=== PATIENT | male | born 1940 | race Caucasian/White ===

== ENCOUNTER 2020-07-12 11:32 | Outpatient (CLI) | payer OTHER, SELFPAY ==
--- NOTE | ~2020-07-12 | XR_ITS ---
EXAMINATION: XR lumbar spine 2-3V EXAM DATE: 07/12/2020 11:52 INDICATION: Low back pain for years. TECHNIQUE: Lumber spine frontal, lateral, lateral L5-S1 projections for interpretation. There is no prior study for comparison. 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 There is 2-3 mm anterolisthesis L3 on L4 and L4 on L5. Mild to moderate diffuse coreen mbar disc disease, with mild progression compared to 2017. Moderate facet arthropathy at L3-4 and L4- 5, less at the upper lumbar levels. Vertebral body heights relatively well-maintained. There is mild to moderate aortic arterial sclerosis. No endplate erosive change. Several calcific densities projecting over colonic stool and right kidney on the frontal appear to be too far anterior on the lateral projection to be kidney stones. 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 Reviewed, dictated and finalized at location A.
== END 2020-07-12 11:33 | disposition home or self-care (01) ==
LOC: ANHIMG 11:38
PROVIDERS: PCP Family Medicine; Visit Provider Family Medicine
DX: G89.29 Other chronic pain (principal); M54.9 Dorsalgia, unspecified; M47.816 Spondylosis without myelopathy or radiculopathy, lumbar region
CPT/HCPCS: 72100

== ENCOUNTER 2021-02-04 13:14 | Outpatient (CLI) | payer OTHER, SELFPAY ==
--- NOTE | 2021-02-04 13:57 | ECHO_ITS ---
Patient Info Name: Shahriar Gerber Age: 80 years : 1940 Gender: Male Ht: 67 in Wt: 170 lbs BSA: 1.92 m2 HR: 67 bpm BP: 126 / 73 mmHg Technical Quality: Fair Exam Date: 02/04/2021 2:06 PM Exam Location: [facility] Patient Status: Outpatient Admit Date: 02/04/2021 Staff Ordering Physician: Stewart Lowe MD Radiotelephone Operator: Sallie Zhang RDCS Attending Provider: Stewart Lowe MD Exam Type: CA echo doppler color flow Study Info Indications R01.1 - Cardiac murmur, unspecified Complete two-dimensional, color flow and Doppler transthoracic echocardiogram is performed. Summary 1. Complete two-dimensional, color flow and Doppler transthoracic echocardiogram is performed. 2. Left ventricular chamber dimension is normal. 3. Left ventricular systolic function is normal, estimated at 60-65%. 4. There is mildly increased left ventricular wall thickness. 5. The left ventricular diastolic function is grade I diastolic dysfunction. 6. E/e' 13 is mildly elevated. 7. There is severe aortic valve sclerosis. 8. There is mild aortic valve stenosis with a peak velocity of 213 cm/s, mean gradient of 10 mmHg, and aortic valve area of 1.7 cm2. 9. There is trace aortic valve regurgitation. 10. The mitral valve has mildly calcified leaflets and moderately calcified annulus. 11. No pulmonary hypertension, estimated pulmonary arterial systolic pressure is 20 mmHg. Left Ventricle E/e' 13 is mildly elevated. Left ventricular chamber dimension is normal. Left ventricular systolic function is normal, estimated at 60-65%. There is mildly increased left ventricular wall thickness. The left ventricular diastolic function is grade I diastolic dysfunction. Right Ventricle Right ventricular chamber dimension is normal. Right ventricular systolic function is normal. Left Atria Left atrial chamber dimension is normal. Right Atria Right atrial chamber dimension is normal. Aortic Valve The aortic valve is trileaflet. There is severe aortic valve sclerosis. There is mild aortic valve stenosis with a peak velocity of 213 cm/s, mean gradient of 10 mmHg, and aortic valve area of 1.7 cm2. There is trace aortic valve regurgitation. Pulmonic Valve There is no pulmonic regurgitation. Mitral Valve The mitral valve has mildly calcified leaflets and moderately calcified annulus. There is no mitral valve stenosis. There is no mitral valve regurgitation. Tricuspid Valve There is no tricuspid valve regurgitation. No pulmonary hypertension, estimated pulmonary arterial systolic pressure is 20 mmHg. Pericardium/Pleural There is no pericardial effusion. Inferior Vena Cava Normal inferior vena cava with >50% collapse upon inspiration consistent with normal right atrial pressure, 5 mmHg. Aorta The aortic root size at the sinus of Valsalva is normal. Left Ventricular Outflow Tract Name Value Normal LVOT 2D LVOT Diameter 1.9 cm LVOT Doppler LVOT Peak Gradient 7 mmHg LVOT Mean Gradient 5 mmHg LVOT VTI 27 cm
== END 2021-02-04 13:15 | disposition home or self-care (01) ==
LOC: ANHCARD 13:19
PROVIDERS: PCP Family Medicine; Visit Provider Family Medicine
DX: R01.1 Cardiac murmur, unspecified (principal); R93.1 Abnormal findings on diagnostic imaging of heart and coronary circulation
CPT/HCPCS: 93306

== ENCOUNTER 2021-05-06 10:28 | Inpatient (IN) | payer OTHER, SELFPAY ==
[2021-05-06] VITALS (16 sets, daily range): BP systolic 123–160; BP diastolic 64–94; PULSE 78–106; RESP 18–28; TEMP 36.8–38.5; O2SAT 89–96; BMI 26.2
--- NOTE | ~2021-05-06 | CT_ITS ---
EXAMINATION: CT brain wo con, CT cervical spine wo con EXAM DATE: 05/06/2021 12:14 (accession [id number]), 05/06/2021 12:15 (accession [id number]) INDICATION: Fall, head injury. Syncope. TECHNIQUE: Spiral CT of the head was performed without contrast. Axial, coronal and sagittal images were reviewed. Spiral CT of the cervical spine was performed without contrast. Axial images were rev iewed. Coronal and sagittal reformatted images were also reviewed. The dose-length product (DLP) fo r this examination was 681.00 (accession [id number]), 498.74 (accession [id number]) mGy-cm. The exposure was tailored according to patient size, and iterative reconstruction (ASIR) was used as additional dose reduction technique. There is no prior study for comparison. FINDINGS: HEAD CT: There is no acute intraparenchymal hemorrhage. No evidence of intraparenchymal brain mass l esion. No evidence of acute infarction. There is mild periventricular and subcortical hypodensity, n onspecific but probably related to small vessel ischemic disease. There is mild prominence of the s ulci and ventricles related to cerebral atrophy. There is no mass effect or midline shift. There i s no obstructive hydrocephalus suspected. There are no extra-axial collections. There are no acute calvarial fractures. Patient has had bilateral ocular lens surgery. Soft tissue is unremarkable. M ild left maxillary sinus and mild bilateral ethmoid mucoperiosteal thickening. CERVICAL CT: Bilateral upper lobe airspace disease, could be acute viral pneumonia. There is no evide nce of acute cervical fracture. The odontoid process is intact. Pre-dens space is normal. Preverte bral soft tissue is normal. There are no soft tissue abnormalities identified. There is no disc spa ce widening or traumatic vertebral body subluxation suspected. There is advanced mid and lower cervi avani disc disease, and cervical arthropathy. A detailed level by level evaluation of spondylosis can be added as addendum if requested. IMPRESSION: 1. No acute intracranial findings or cervical fracture. 2. Bilateral upper lobe airspace disease suspicious for COVID 19, or other acute process. Reviewed, dictated and finalized at location A. NISTRATIVE OFFICER IMPRESSION: 1. No acute intracranial findings or cervical fracture. 2. Bilateral upper lobe airspace disease suspicious for COVID 19, or other acu te process.
--- NOTE | ~2021-05-06 | US_ITS ---
EXAMINATION: US right upper quadrant DATE: 05/08/2021 15:29 INDICATION: Abnormal liver function tests. TECHNIQUE: Multiple grayscale and Doppler ultrasound images of the abdomen were obtained. COMPARISON: Chest CT 05/06/2021 FINDINGS: The visualized portions of the head and body of the pancreas are normal. The liver is fanny l without focal lesion. No liver surface nodularity. There is normal flow in main portal vein. The ga llbladder is normal in size. No gallstones or gallbladder wall thickening. There was no sonographic M urphy sign. The common duct is normal and measures 3 mm. IMPRESSION: 1. Normal right upper quadrant ultrasound. Reviewed, dictated and finalized at location A. CONDITIONING MECHANIC INDUSTRIAL
--- NOTE | ~2021-05-06 | XR_ITS ---
EXAMINATION: XR lumbar spine min 4V EXAM DATE: 05/06/2021 12:31 INDICATION: Fall, injury, low back pain. Syncope. TECHNIQUE: Lumber spine frontal, lateral, bilateral oblique projections. Coned down frontal and lat eral L5-S1 lumbar projections for interpretation. Comparison is made to prior examination from 017. FINDINGS: There are no acute fractures identified. Shape to the right L2 transverse process is unchan ged compared to 2017.. Mild to moderate disc disease L3-4 and L4-5, mild at the other lumbar levels. There is 3 mm anterolisthesis L5 on S1. Sacrum, sacroiliac joints, sacral arcuate lines are intact. Mild to moderate abdominal aortic arteriosclerosis. There is moderate mid and lower lumbar disc disea se. Moderate bilateral hip osteoarthritis. IMPRESSION: 1. No acute lumbar findings. 2. Mild to moderate spondylosis. Reviewed, dictated and finalized at location A. MACY SERVICE ASSOCIATE
--- NOTE | ~2021-05-06 | XR_ITS ---
XR chest 1V portable 05/10/2021 14:19 Indication: Covid pneumonia Procedure: AP portable chest Comparison: Comparison to multiple prior studies sequentially, with oldest reviewed study dated 06/25. Findings: Patchy bilateral airspace disease, compatible with pneumonia. No pleural effusion. No acute osseous abnormality. Heart size normal. Impression: 1: Patchy bilateral airspace disease, compatible with pneumonia. Reviewed, dictated and finalized at location B. ENFORCEMENT OFFICER Impression: 1: Patchy bilateral airspace disease, compatible with pneumonia.
--- NOTE | ~2021-05-06 | CT_ITS ---
EXAMINATION: CTA chest PE protocol EXAM DATE: 05/06/2021 12:37 INDICATION: Hypoxia. TECHNIQUE: Spiral CTA of the chest (pulmonary arteries) was performed with 100 cc Omnipaque 350 intr avenous contrast injection. Images were acquired during the pulmonary arterial phase. Coronal maxi mum intensity projection 3D-reconstructions were created by the technologist on dedicated workstation . Axial, coronal and sagittal reformatted images were reviewed. The dose-length product (DLP) for t his examination was 414.98 mGy-cm. The exposure was tailored according to patient size (auto mA exp osure control), and iterative reconstruction (ASIR) was used as additional dose reduction technique. There is no prior study for comparison. FINDINGS: Pulmonary arteries are well opacified and without intraluminal filling defects. No thorac ic aortic dissection. Moderate amount of bilateral groundglass airspace disease, most likely COVID p neumonia given appearance and also community prevalence. There are no pleural or pericardial effusio ns. Tracheobronchial tree is patent. There is no mediastinal, hilar or axillary lymphadenopathy. There is no pneumothorax. Heart normal in size. There is moderate coronary arterial calcificati on, arterial sclerosis. There is small sliding gastroesophageal hiatal hernia. No acute fractures id entified. IMPRESSION: 1. Moderate amount of bilateral airspace disease most consistent with COVID pneumonia. 2. No pulmonary emboli. Reviewed, dictated and finalized at location A. NT REP IMPRESSION: 1. Moderate amount of bilateral airspace disease most consistent with COVID pn eumonia. 2. No pulmonary emboli.
--- NOTE | ~2021-05-06 | XR_ITS ---
XR chest 1V portable 05/06/2021 11:23 Indication: Dizziness Procedure: AP portable chest Comparison: 06/26/2007 Findings: Patchy bilateral airspace disease, compatible with pneumonia. Edema less favored. No signif icant effusion or pneumothorax. No acute osseous abnormality. Impression: 1: Patchy bilateral airspace disease, most likely pneumonia. Edema less favored. Reviewed, dictated and finalized at location B. L BOX MAKER Impression: 1: Patchy bilateral airspace disease, most likely pneumonia. Edema less favored .
--- NOTE | 2021-05-06 11:14 | ECG_ITS ---
Measurements Intervals [place] Rate: 102 P: 68 NV: 156 QRS: 12 QRSD: 96 T: 37 QT: 339 QTc: 443 Interpretive Statements SINUS TACHYCARDIA INCOMPLETE RIGHT BUNDLE BRANCH BLOCK BORDERLINE ST ABNORMALITY- ANTEROLATERAL LEADS BASELINE ARTIFACT- I, II, III, AVR, AVL, AVF, V1-V3 BORDERLINE ECG Electronically Signed On 05-06-2021 11:26:52 WAREHOUSE LABORER by Roger Rawls D.O.
--- NOTE | 2021-05-06 11:26 | PC.NURSE ---
Pt states that he has been ill for a week. States he possibly has COVID. Reports syncope this am.
[2021-05-06 11:43] LABS: Alveolar/Arterial O2 Gradient 94.9 mmHg; Base Excess ABG 1.7 mEq/l (+/-2.0); Carboxyhemoglobin 0.7 % THb (0-2.0); Fractional Inspired Oxygen 28 %; HCO3 ABG 23.7 mEq/l (22.0-26.0); Oxygen Saturation ABG 95.6 % (95.0-100.0); Oxyhemoglobin 93.6 % THb (90.0-100.0); PO2 ABG 69.3 mmHg (80.0-100.0); PO2 FiO2 Ratio Arterial Blood 2.48 %; Reduced Hemoglobin 5.7 %THb (0-5.0); Total Hemoglobin 13.7 g/dL (12.0-18.0)
[2021-05-06 11:45] LABS: Device NASAL CANNULA; Modified Allen's Test Pass; Site Drawn LEFT RADIAL; pH ABG 7.516 (7.350-7.450)
[2021-05-06 11:48] LABS: Basophils Percent Auto 0.3 % (0.2-1.2); Eosinophils Percent Auto 0.1 % (0-4.4); Hematocrit 39.4 % (42.0-52.0); Immature Granulocyte Absolute 0.11 K/mm3 (0.00-0.031); Immature Granulocyte Percent A 0.8 % (0-0.5); Lymphocytes Absolute Auto 0.69 K/mm3 (0.9-3.2); Mean Corpuscular HGB Conc 35.5 g/dl (32-36); Mean Corpuscular Hemoglobin 31.1 pg (26-34); Mean Corpuscular Volume 87.6 fl (80-100); Mean Platelet Volume 9.1 fl (7.4-10.4); Monocytes Absolute Auto 0.6 K/mm3 (0.1-0.6); Monocytes Percent Auto 4.4 % (2.6-8.5); Neutrophils Absolute Auto 12.3 K/mm3 (1.3-6.7); Neutrophils Percent Auto 89.4 % (45.5-73.1); Platelet Count Result 258 k/mm3 (150-375); Red Cell Distribution Width 12.2 % (11.5-14.5); White Blood Count 13.8 K/mm3 (4.5-10.0)
[2021-05-06 12:10] LABS: Lactic Acid Reflex 1.9 mmol/L (0.7-2.1)
[2021-05-06 12:10] LABS: Alanine Aminotransferase 106 U/L (4-50); Albumin Level 4.1 g/dL (3.5-5.1); Alkaline Phosphatase 112 U/L (38-126); Anion Gap 12 mmol/L (8-16); Aspartate Amino Transferase 134 U/L (17-59); Bilirubin,Total 1.6 mg/dL (0.2-1.3); Blood Urea Nitrogen 21 mg/dL (9-20); Calcium 8.8 mg/dL (8.4-10.2); Carbon Dioxide 26 mmol/L (22-30); Chloride 96 mmol/L (98-107); Estimated CRCL calculation 53 ml/min; Estimated Glomerular Filt Rate > 60; Glucose 170 mg/dL (65-110); Potassium 3.2 mmol/L (3.4-5.0); Sodium 134 mmol/L (137-145)
--- NOTE | 2021-05-06 12:16 | PC.NURSE ---
pt to ct via stretcher
--- NOTE | 2021-05-06 12:48 | PC.NURSE ---
David Gerber, son/POA, updated. call back number [phone]
[2021-05-06 13:24] LABS: SARS-CoV-2 RNA PCR Positive
--- NOTE | 2021-05-06 14:08 | ED.GENADULT ---
HPI - General Adult General Chief complaint: Shortness of Breath/Dyspnea Stated complaint: cough, weakness, syncope this am Time Seen by Provider: 05/06/21 11:23 Source: patient Mode of arrival: ambulatory Limitations: no limitations History of Present Illness HPI narrative: Patient is a 81-year-old male presented with chief complaint of weakness, cough and syncopal episode prior to arrival. Patient reports that he just began feeling shortness of breath. However he did present to the emergency department due to having a syncopal episode just prior to arrival. Patient reports that he has had 3 Covid vaccinations however he did have a close friend that tested Covid positive recently. Patient reports he has had some headaches but does not have a headache at this time. Patient denies any changes to his vision or hearing. Patient reports that his syncopal episode was only if he is taking. He states he then went treatment to the emergency department and was able to ambulate inside. Patient denies chest pain. Patient reports he was not aware of a fever. Patient denies nausea or vomiting. Related Data Home Medications Medication Instructions Recorded Confirmed multivitamin with minerals 1 tablet PO DAILY 12/20/19 05/06/21 tamsulosin 0.4 mg capsule 0.4 mg PO DAILY 12/31/20 05/06/21 Allergies Allergy/AdvReac Type Severity Reaction Status Date / Time No Known Allergies Allergy Unknown Verified 12/31/20 13:34 Review of Systems Review of Systems: CONSTITUTIONAL: Denies fever, chills, or sweats. EYES: Denies visual changes, redness, or discharge. ENT: Denies rhinorrhea, congestion, sore throat, or otalgia. CARDIOVASCULAR: Denies chest pain, palpitations, or edema. RESPIRATORY: Reports cough and dyspnea. GASTROINTESTINAL: Denies abdominal pain, nausea, vomiting, or diarrhea. GENITOURINARY: Denies dysuria or hematuria. SKIN: Denies rash or itching. MUSCULOSKELETAL: Denies back pain, joint pain, or myalgia. NEUROLOGIC: Reports syncopal episode and resolved headache denies numbness, dizziness, PSYCHIATRIC: Denies anxiety or depression. [facility] Past Medical History Medical History (Updated 05/06/21 @ 15:43 by Michael Aragon PA-C) BPH w/o urinary obs/LUTS Chronic back pain Dyslipidemia Hx of malignant neoplasm of prostate Prostate cancer Surgical History Surgical History History of appendectomy 194 History of hemorrhoidectomy 1972 History of tonsillectomy and adenoidectomy 1944 Family History Family History Other No pertinent family history Social History Social History Smoking status: Former smoker Second hand tobacco smoke exposure: No Smoking end date: 04/13/72 Alcohol intake: current Alcohol use details: consumes 2 beers twice weekly Substance use: never Substance use type: does not use Exam Narrative: GENERAL: Well-appearing, well-nourished.. HEAD: Normocephalic, atraumatic. No lacerations or hematomas. EYES: PERRLA and EOMI. NECK: Normal ROM. No outward signs of trauma. CHEST: Not tender to palpation. Clear to auscultation. Increased respiratory rate noted. No wheezes rales or rhonchi HEART: Regular rate and rhythm. No murmur heard. Normal peripheral pulses. BACK: Mild diffuse tenderness to lumbar area. No deformities noted. ABDOMEN: Soft, nontender, nondistended, normal active bowel sounds. EXTREMITIES: Normal range of motion. No edema. SKIN: Warm, dry, no rash. NEURO: No focal deficits. Alert and oriented x3. PSYCH: Normal mood and affect. Course Vital Signs Vital signs: Vital Signs Temperature 101.3 F H 05/06/21 10:36 Pulse Rate 106 H 05/06/21 10:36 Respiratory Rate 20 05/06/21 10:36 Blood Pressure 131/64 05/06/21 10:36 Pulse Oximetry 90 05/06/21 10:36 Temperature 99.2 F 05/06/21 12:42 P
[2021-05-06 15:29] LABS: Prothrombin Time 13.1 Seconds (11.1-14.7)
[2021-05-06] MEDS: REMDESIVIR 200 MG/NS 250 ML 200 MG/250 ML BAG 250 MG IVPB (16:05)
[2021-05-06] MEDS: DEXAMETHASONE 2 MG TABLET 6 MG PO (16:07)
[2021-05-06] MEDS: POTASSIUM CHLORIDE 20 MEQ TABLET 40 MEQ PO (16:07)
--- NOTE | 2021-05-06 16:50 | PM.IMHP ---
H&P: HPI History of Present Illness Date/Time: 05/06/21 16:50 Chief Complaint: passed out Narrative: 81-year-old male with a past medical history of mild aortic valve stenosis, BPH and hyperlipidemia who presented to the ER due to a syncopal episode. The patient reports that he has been having 4 days of weakness, dry cough and fatigue. The patient reports that he was exposed to a friend who he lives with who is positive for COVID. The patient himself is had 3 Pfizer COVID vaccines. His booster was on 02/21/2021. He reports that he has been having some chills at home but has not checked his temperature. He was febrile on presentation to the ER with a T-max of 101.3?. He has had extremely poor appetite over the last 3-4 days. He denies any nausea or vomiting. He has chronic dribbling of urine and difficulty emptying his bladder. He has noticed that the tip of his penis has been discolored for couple of days. He denies any pain to the tip of his penis. He reports that his urologist retired any has not been reestablished with a new urologist. He denies any dysuria. He does have chronic low back pain that is somewhat worse than his baseline. He denies any loss of bowel control. He has not had any numbness or tingling in his legs. He denies lower extremity swelling. He has had loss of sense of taste. Review of Systems Review of Systems: 12 systems were reviewed with pertinent positives and negatives per HPI. Except as documented in the HPI, all other systems were reviewed and are negative. ON LICENSE OF [facility] Past Medical History Medical History (Updated 05/06/21 @ 19:39 by Maggie Reeder DO) Aortic valve stenosis BPH (benign prostatic hyperplasia) Chronic back pain Dyslipidemia Prostate cancer Surgical History Surgical History History of appendectomy 1946 History of hemorrhoidectomy 1971 History of tonsillectomy and adenoidectomy 1944 Family History Family History (Updated 05/06/21 @ 17:42 by Maggie Reeder DO) Other No pertinent family history Social History Social History (Updated 05/06/21 @ 19:15 by Maggie Reeder DO) Social History: Patient has been 3 times. His last January 2021. He is still having periods of grieving. He lives with a friend. 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 He smoked for about 10 years but quit in his early 30s. He rarely drinks alcohol and only in moderation. He denies illicit substance use. Primary care physician: Dr. James Lowe Code status: DNR/DNI (the patient states that he would be okay with care up until the point of intubation or cardiac arrest including pressor and noninvasive ventilatory support) Surrogate decision maker: David (son) Smoking status: Former smoker Second hand tobacco smoke exposure: No Smoking end date: 04/13/72 Alcohol intake: current Alcohol use details: consumes 2 beers twice weekly Substance use: never Substance use type: does not use Comments His father lived to age 94. His mother was 89. He has 6 siblings who are all healthy. Meds Home Medications and Allergies Home Medications Medication Instructions Recorded Confirmed Type multivitamin with minerals 1 tablet PO DAILY 12/20/19 05/06/21 History tamsulosin 0.4 mg capsule 0.4 mg PO DAILY 12/31/20 05/06/21 History atorvastatin 20 mg tablet 20 mg PO QHS #90 tablet 04/03/21 05/06/21 Rx Allergies Allergy/AdvReac Type Severity Reaction Status Date / Time No Known Allergies Allergy Unknown Verified 12/31/20 13:34 Vital Signs Vital Signs - 24 hr 05/06/21 10:36 05/06/21 11:00 05/06/21 11:24 Temperature 101.3 F H Pulse Rate 106 H 80 Respiratory Rate 20 24 H Blood Pressure 131/64 Pulse Oximetry 90 05/06/21 11:25 05/06/21 12:42 05/06/21 14:03 Temperature 99.2 F Pulse Rate 102 H 90 83 Respiratory Rate 28 H 20 18 Blood Pressure 128/71
--- NOTE | 2021-05-06 17:08 | PC.NURSE ---
HOSPITALIST AT BEDSIDE .
--- NOTE | 2021-05-06 18:01 | PC.NURSE ---
Pt ate 80% of meal. Denies needs at this time
--- NOTE | 2021-05-06 19:10 | PC.NURSE ---
Assuming care of pt.
[2021-05-06] MEDS: BARICITINIB 2 MG TABLET 4 MG PO (20:25)
[2021-05-06] MEDS: SODIUM CHLORIDE 0.9% IV 1,000 ML 999 ML IV CONT (20:25)
[2021-05-06] MEDS: ATORVASTATIN 20 MG TABLET PO (22:28)
--- NOTE | 2021-05-06 22:54 | ADMGEN ---
This patient, Shahriar Gerber, was admitted to 3 [facility] Surg Room 309-01. Patient/family oriented to hospital policies and general routines including ID bracelet, bed and alarms, visiting hours, pain management, procedures, bathroom and other care routines, personal items, smoking policy, room service/diet, and visiting hours. Information on how to activate the Rapid Response Team has been discussed. Patient/Family are encouraged to report perceived risks to care and to ask questions if they do not understand what they are told or what they should do.
[2021-05-07] VITALS (7 sets, daily range): BP systolic 131–145; BP diastolic 52–74; PULSE 76–93; RESP 18; TEMP 36.5–37; O2SAT 88–95
[2021-05-07 07:48] LABS: Basophils Percent Auto 0.2 % (0.2-1.2); Hematocrit 34.7 % (42.0-52.0); Immature Granulocyte Absolute 0.09 K/mm3 (0.00-0.031); Immature Granulocyte Percent A 1.4 % (0-0.5); Lymphocytes Percent Auto 7.6 % (18.3-44.2); Mean Corpuscular HGB Conc 34.6 g/dl (32-36); Mean Corpuscular Hemoglobin 30.7 pg (26-34); Mean Corpuscular Volume 88.7 fl (80-100); Mean Platelet Volume 8.8 fl (7.4-10.4); Monocytes Absolute Auto 0.4 K/mm3 (0.1-0.6); Monocytes Percent Auto 5.8 % (2.6-8.5); Neutrophils Absolute Auto 5.6 K/mm3 (1.3-6.7); Platelet Count Result 252 k/mm3 (150-375); Red Blood Count 3.91 M/mm3 (4.6-6.20); Red Cell Distribution Width 12.3 % (11.5-14.5); White Blood Count 6.5 K/mm3 (4.5-10.0)
[2021-05-07 08:11] LABS: INR 1.1; Prothrombin Time 14.1 Seconds (11.1-14.7)
[2021-05-07 09:17] LABS: Alanine Aminotransferase 158 U/L (4-50); Albumin Level 3.7 g/dL (3.5-5.1); Alkaline Phosphatase 91 U/L (38-126); Anion Gap 8 mmol/L (8-16); Aspartate Amino Transferase 167 U/L (17-59); Bilirubin,Total 1.2 mg/dL (0.2-1.3); Blood Urea Nitrogen 20 mg/dL (9-20); Calcium 8.6 mg/dL (8.4-10.2); Carbon Dioxide 27 mmol/L (22-30); Chloride 101 mmol/L (98-107); Estimated CRCL calculation 59 ml/min; Estimated Glomerular Filt Rate > 60; Glucose 136 mg/dL (65-110); Lactate Dehydrogenase 946 U/L (313-618); Sodium 136 mmol/L (137-145)
[2021-05-07 09:31] LABS: CRP 18.4 mg/dL (<1.0)
[2021-05-07] MEDS: DEXAMETHASONE 2 MG TABLET 6 MG PO (09:50)
[2021-05-07] MEDS: REMDESIVIR 100 MG/NS 250 ML 100 MG/250 ML BAG 250 MG IVPB (09:51)
[2021-05-07] MEDS: BARICITINIB 2 MG TABLET 4 MG PO (09:51)
[2021-05-07] MEDS: TAMSULOSIN HCL 0.4 MG CAPSULE PO (09:51)
[2021-05-07] MEDS: ENOXAPARIN 40 MG/0.4 ML SYRINGE SUB-Q (09:51)
--- NOTE | 2021-05-07 13:54 | PM.IMPN ---
Progress Note: A&P Assessment and Plan (1) Acute hypoxemic respiratory failure due to COVID-19: Code(s): U07.1 - COVID-19; J96.01 - Acute respiratory failure with hypoxia Status: Acute Assessment and Plan: Patient has acute hypoxic respiratory failure due to COVID-19 pneumonia. Patient was started on Decadron and Remdesivir in the ER. Baricitinib added with the patient's permission. Remaining stable at 2-3L/min O2. Inflammatory markers elevated including CRP at 18. Continue to attempt to wean oxygen as tolerated to maintain oxygen saturations greater than 90%. Follow inflammatory markers. (2) Syncope: Qualifiers: Syncope type: unspecified Qualified Code(s): R55 - Syncope and collapse Code(s): R55 - Syncope and collapse Status: Acute Assessment and Plan: Patient had syncope prior to admission. CT brain showing no acute intracranial findings. Cervical spine CT showing no fractures. Syncope likely due to volume depletion with decreased oral intake over the last several days. Consider related to Flomax but felt less liekly. Orthostatic vital signs normal last night but this was after the IV fluid. Will monitor for now. Tele normal so okay to stop. (3) Acute hypokalemia: Code(s): E87.6 - Hypokalemia Status: Acute Assessment and Plan: Patient had mild hypokalemia. He received potassium chloride oral supplementation. Repeat potassium normal. Follow periodically. (4) BPH with obstruction/lower urinary tract symptoms: Code(s): N40.1 - Benign prostatic hyperplasia with lower urinary tract symptoms; N13.8 - Other obstructive and reflux uropathy Status: Acute Assessment and Plan: Patient does have history of BPH and reports frequent dribbling of urine in sensation of incomplete bladder emptying. Continue Flomax. (5) DVT prophylaxis: Code(s): Z29.9 - Encounter for prophylactic measures, unspecified Status: Acute Assessment and Plan: Lovenox Subjective Date/time seen: 05/07/21 13:54 Interval history: 81yo male with hx of BPH and Prostate CA here for weakness, cough and SOB and found to have COVID. No CP or SOB but with TEJAL. Nonproductive cough. No n/v. No anosmia or taste disturbance. Exam Narrative: Tm 101.3 97.9 131/62 91 18 94% 3L Gen - NARD Chest - scattered inspiratory crackles, nml RR CV - RRR S1/S2 Abd - Soft, NT/ND, Positive BS Ext - No pedal edema Psych - Nml mood and affect Skin - Warm and dry Objective Data Vital Signs Vital Signs: Vital Signs - 24 hr 05/06/21 14:03 05/06/21 16:11 05/06/21 17:07 Temperature 98.9 F Pulse Rate 83 92 85 Respiratory Rate 18 24 H 22 H Blood Pressure 123/68 135/72 146/78 H Pulse Oximetry 96 96 92 05/06/21 19:03 05/06/21 19:30 05/06/21 19:37 Temperature 98.2 F Pulse Rate 88 88 Respiratory Rate 18 18 20 Blood Pressure 136/86 139/86 Pulse Oximetry 96 94 05/06/21 20:30 05/06/21 21:30 05/06/21 22:24 Temperature Pulse Rate 79 78 Respiratory Rate 22 H 18 Blood Pressure 160/94 H 152/82 H 139/86 Pulse Oximetry 96 95 05/06/21 22:25 05/06/21 23:07 05/07/21 00:00 Temperature Pulse Rate 81 Respiratory Rate Blood Pressure 140/65 Pulse Oximetry 94 05/07/21 00:41 05/07/21 04:00 05/07/21 08:00 Temperature 98.2 F 97.8 F 97.7 F Pulse Rate 76 93 92 Respiratory Rate 18 18 18 Blood Pressure 141/72 H 145/52 H 142/72 H Pulse Oximetry 92 92 92 05/07/21 12:00 Temperature 97.9 F Pulse Rate 91 Respiratory Rate 18 Blood Pressure 131/62 Pulse Oximetry 94 Intake/Output Intake/Output: Intake & Output 05/04/21 05/05/21 05/06/21 05/07/21 23:59 23:59 23:59 23:59 Intake Total 1350 637 Output Total 100 250 Balance 1250 387 Meds/Results Medications: Active Medications Generic Name Dose Route Start Last Admin Trade Name Freq PRN Reason Stop Dose Admin Acetaminophen 650 mg 05/06/21 15:07 A
[2021-05-07] MEDS: ATORVASTATIN 20 MG TABLET PO (19:59)
[2021-05-08] VITALS (9 sets, daily range): BP systolic 118–161; BP diastolic 59–77; PULSE 80–107; RESP 18–20; TEMP 36.4–37.7; O2SAT 91–95
--- NOTE | 2021-05-08 | ECHO_ITS ---
Patient Info Name: Shahriar Gerber Age: 81 years : 1940 Gender: Male Ht: 68 in Wt: 172 lbs BSA: 1.95 m2 HR: 107 bpm BP: 161 / 77 mmHg Heart Rhythm: Sinus Rhythm Technical Quality: Good Exam Date: 05/08/2021 4:09 PM Exam Location: [facility] Patient Status: Inpatient Admit Date: 05/06/2021 Staff Ordering Physician: Carson Sparks MD Tennis Director: Mag Estrada RDCS Attending Provider: Maggie Reeder DO Exam Type: CA echo doppler color flow Study Info Indications - sob Complete two-dimensional, color flow and Doppler transthoracic echocardiogram is performed. Summary 1. Complete two-dimensional, color flow and Doppler transthoracic echocardiogram is performed. 2. Left ventricular chamber dimension is normal. 3. Left ventricular systolic function is normal, estimated at 65-70%. 4. There is mildly increased left ventricular wall thickness. 5. The left ventricular diastolic function is grade I diastolic dysfunction. 6. E/e' 13 is mildly elevated. 7. There is moderate aortic valve sclerosis. 8. There is mild aortic valve regurgitation. 9. There is mild aortic valve stenosis based on a peak velocity of 278 cm/s, mean gradient of 15 mmHg, and aortic valve area of 1.6 cm2. 10. No pulmonary hypertension, estimated pulmonary arterial systolic pressure is 33 mmHg. Left Ventricle E/e' 13 is mildly elevated. Left ventricular chamber dimension is normal. Left ventricular systolic function is normal, estimated at 65-70%. There is mildly increased left ventricular wall thickness. The left ventricular diastolic function is grade I diastolic dysfunction. Right Ventricle Right ventricular chamber dimension is normal. Right ventricular systolic function is normal. Left Atria Left atrial chamber dimension is normal. Right Atria Right atrial chamber dimension is normal. Aortic Valve There is mild aortic valve stenosis based on a peak velocity of 278 cm/s, mean gradient of 15 mmHg, and aortic valve area of 1.6 cm2. The aortic valve is not well visualized. There is moderate aortic valve sclerosis. There is mild aortic valve regurgitation. Pulmonic Valve There is no pulmonic regurgitation. Mitral Valve There is no mitral valve stenosis. There is no mitral valve regurgitation. Tricuspid Valve There is no tricuspid valve regurgitation. No pulmonary hypertension, estimated pulmonary arterial systolic pressure is 33 mmHg. Pericardium/Pleural There is no pericardial effusion. Inferior Vena Cava Normal inferior vena cava with >50% collapse upon inspiration consistent with normal right atrial pressure, 5 mmHg. Aorta The aortic root size at the sinus of Valsalva is normal. Left Ventricular Outflow Tract Name Value Normal LVOT 2D LVOT Diameter 2.1 cm LVOT Doppler LVOT Peak Gradient 7 mmHg LVOT Mean Gradient 4 mmHg LVOT VTI 23 cm LVOT VTI/AV VTI Ratio 0.5 LVOT Stroke Volume 79 ml LVOT CO 17.8
[2021-05-08 07:26] LABS: Basophils Percent Auto 0.2 % (0.2-1.2); Eosinophils Absolute Auto 0.2 K/mm3 (0-0.3); Eosinophils Percent Auto 1.2 % (0-4.4); Hematocrit 38.2 % (42.0-52.0); Hemoglobin 13.5 g/dL (14.0-18.0); Immature Granulocyte Absolute 0.25 K/mm3 (0.00-0.031); Immature Granulocyte Percent A 1.4 % (0-0.5); Lymphocytes Percent Auto 7.5 % (18.3-44.2); Mean Corpuscular HGB Conc 35.3 g/dl (32-36); Mean Corpuscular Volume 87.6 fl (80-100); Mean Platelet Volume 9.1 fl (7.4-10.4); Monocytes Absolute Auto 0.9 K/mm3 (0.1-0.6); Monocytes Percent Auto 5.1 % (2.6-8.5); Neutrophils Absolute Auto 14.7 K/mm3 (1.3-6.7); Neutrophils Percent Auto 84.6 % (45.5-73.1); Platelet Count Result 361 k/mm3 (150-375); Red Blood Count 4.36 M/mm3 (4.6-6.20); Red Cell Distribution Width 12.4 % (11.5-14.5); White Blood Count 17.4 K/mm3 (4.5-10.0)
[2021-05-08 07:43] LABS: INR 1.1; Prothrombin Time 14.2 Seconds (11.1-14.7)
[2021-05-08] MEDS: ENOXAPARIN 40 MG/0.4 ML SYRINGE SUB-Q (09:20)
[2021-05-08] MEDS: TAMSULOSIN HCL 0.4 MG CAPSULE PO (09:20)
[2021-05-08] MEDS: DEXAMETHASONE 2 MG TABLET 6 MG PO (09:20)
--- NOTE | 2021-05-08 09:56 | PM.IMPN ---
Progress Note: A&P Assessment and Plan (1) Acute hypoxemic respiratory failure due to COVID-19: Code(s): U07.1 - COVID-19; J96.01 - Acute respiratory failure with hypoxia Status: Acute Assessment and Plan: Patient has acute hypoxic respiratory failure due to COVID-19 pneumonia. Patient was started on Decadron and Remdesivir in the ER. Baricitinib added with the patient's permission. Remaining stable at 2-3L/min O2. CRP elevated to 18 but better today at 10; LDH higher at 1138. Continue to wean oxygen as tolerated to maintain oxygen saturations greater than 90%. Follow inflammatory markers. Continue current treatment plan. (2) Syncope: Qualifiers: Syncope type: unspecified Qualified Code(s): R55 - Syncope and collapse Code(s): R55 - Syncope and collapse Status: Acute Assessment and Plan: Patient had syncope prior to admission. CT brain showing no acute intracranial findings. Cervical spine CT showing no fractures. Syncope likely due to volume depletion with decreased oral intake over the last several days. Consider related to Flomax but felt less likely. Orthostatic vital signs normal but this was after the IV fluid. Patient weak with lightheadedness. Could be related to poor oral intake. Will check orthostatics again. Started PT/OT. Check B12/TSH. Check Echo. (3) Elevated LFTs: Code(s): R79.89 - Other specified abnormal findings of blood chemistry Status: Acute Assessment and Plan: AST/ALT normal in Dec. AST 134 and ALT 106 on admission. Levels trending upward to 238/262 respectfully. [place] related to COVID made worse with Remdesivir. On Lipitor which will stop. Check Hepatitis panel and RUQ US. (4) Acute hypokalemia: Code(s): E87.6 - Hypokalemia Status: Acute Assessment and Plan: Patient had mild hypokalemia. He received potassium chloride oral supplementation. Repeat potassium normal. Follow periodically. (5) BPH with obstruction/lower urinary tract symptoms: Code(s): N40.1 - Benign prostatic hyperplasia with lower urinary tract symptoms; N13.8 - Other obstructive and reflux uropathy Status: Acute Assessment and Plan: Patient does have history of BPH and reports frequent dribbling of urine in sensation of incomplete bladder emptying. No evidence of urine retention clinically. Continue Flomax. Check bladder scan. (6) DVT prophylaxis: Code(s): Z29.9 - Encounter for prophylactic measures, unspecified Status: Acute Assessment and Plan: [place] Subjective Date/time seen: 05/08/21 09:56 Interval history: 81yo male with hx of BPH and Prostate CA here for weakness, cough and SOB and found to have COVID. Lightheaded with standing. Feels unsteady on his feet. No CP or SOB. Exam Narrative: Tm 100.0 161/77 107 18 92% 2L Gen - NARD Chest - bibasilar inspiratory crackles CV - RRR S1/S2 with 2/6 systolic murmur LSB Abd - Soft, NT/ND, Positive BS Ext - No pedal edema Neuro - no focal weakness. Heel to john intact Psych - Nml mood and affect Skin - Warm and dry Objective Data Vital Signs Vital Signs: Vital Signs - 24 hr 05/07/21 12:00 05/07/21 16:00 05/07/21 20:00 Temperature 97.9 F 98.5 F 98.6 F Pulse Rate 91 88 84 Respiratory Rate 18 18 18 Blood Pressure 131/62 136/60 141/74 H Pulse Oximetry 94 95 92 05/08/21 00:00 05/08/21 04:00 05/08/21 08:00 Temperature 98.1 F 97.6 F 100 F H Pulse Rate 82 86 107 H Respiratory Rate 18 18 18 Blood Pressure 134/75 157/70 H 161/77 H Pulse Oximetry 92 91 92 Intake/Output Intake/Output: Intake & Output 05/05/21 05/06/21 05/07/21 05/08/21 23:59 23:59 23:59 23:59 Intake Total 1350 1607 540 Output Total 100 1150 200 Balance 1250 457 340 Meds/Results Medications: Active Medications Generic Name Dose Route Start Last Admin Trade Name Freq PRN Reason Stop Dose Admin Acetaminophen 650 mg 05/06/21 15:07 Acetam
[2021-05-08 10:07] LABS: Alanine Aminotransferase 262 U/L (4-50); Anion Gap 13 mmol/L (8-16); Aspartate Amino Transferase 238 U/L (17-59); Blood Urea Nitrogen 22 mg/dL (9-20); Calcium 9.1 mg/dL (8.4-10.2); Carbon Dioxide 26 mmol/L (22-30); Chloride 102 mmol/L (98-107); Estimated CRCL calculation 53 ml/min; Estimated Glomerular Filt Rate > 60; Glucose 108 mg/dL (65-110); Lactate Dehydrogenase 1138 U/L (313-618); Magnesium 2.3 mg/dL (1.6-2.3); Potassium 3.6 mmol/L (3.4-5.0); Sodium 141 mmol/L (137-145)
[2021-05-08 10:11] LABS: CRP 10.1 mg/dL (<1.0)
[2021-05-08] MEDS: BARICITINIB 2 MG TABLET 4 MG PO (11:23)
[2021-05-08] MEDS: REMDESIVIR 100 MG/NS 250 ML 100 MG/250 ML BAG 250 MG IVPB (11:24)
[2021-05-09] VITALS (10 sets, daily range): BP systolic 116–133; BP diastolic 52–70; PULSE 76–113; RESP 12–20; TEMP 36.2–38.1; O2SAT 89–95
[2021-05-09] MEDS: TAMSULOSIN HCL 0.4 MG CAPSULE PO (09:25)
[2021-05-09] MEDS: ACETAMINOPHEN 325 MG TABLET 650 MG PO (09:25)
[2021-05-09] MEDS: DEXAMETHASONE 2 MG TABLET 6 MG PO (09:25)
[2021-05-09] MEDS: ENOXAPARIN 40 MG/0.4 ML SYRINGE SUB-Q (09:28)
[2021-05-09 09:49] LABS: Basophils Absolute Auto 0.1 K/mm3 (0.0-0.1); Basophils Percent Auto 0.3 % (0.2-1.2); Eosinophils Absolute Auto 0.2 K/mm3 (0-0.3); Eosinophils Percent Auto 1.4 % (0-4.4); Hematocrit 36.9 % (42.0-52.0); Hemoglobin 12.5 g/dL (14.0-18.0); Immature Granulocyte Absolute 0.31 K/mm3 (0.00-0.031); Lymphocytes Absolute Auto 0.81 K/mm3 (0.9-3.2); Lymphocytes Percent Auto 5.1 % (18.3-44.2); Mean Corpuscular HGB Conc 33.9 g/dl (32-36); Mean Corpuscular Hemoglobin 29.9 pg (26-34); Mean Corpuscular Volume 88.3 fl (80-100); Mean Platelet Volume 8.8 fl (7.4-10.4); Monocytes Absolute Auto 0.4 K/mm3 (0.1-0.6); Monocytes Percent Auto 2.7 % (2.6-8.5); Neutrophils Percent Auto 88.5 % (45.5-73.1); Platelet Count Result 362 k/mm3 (150-375); Red Blood Count 4.18 M/mm3 (4.6-6.20); Red Cell Distribution Width 12.4 % (11.5-14.5); White Blood Count 15.8 K/mm3 (4.5-10.0)
[2021-05-09 10:09] LABS: INR 1.2; Prothrombin Time 15.1 Seconds (11.1-14.7)
[2021-05-09 10:45] LABS: CRP 17.2 mg/dL (<1.0)
[2021-05-09 10:46] LABS: Alanine Aminotransferase 152 U/L (4-50); Albumin Level 3.8 g/dL (3.5-5.1); Alkaline Phosphatase 84 U/L (38-126); Anion Gap 12 mmol/L (8-16); Aspartate Amino Transferase 94 U/L (17-59); Bilirubin,Total 1.2 mg/dL (0.2-1.3); Blood Urea Nitrogen 19 mg/dL (9-20); Calcium 8.6 mg/dL (8.4-10.2); Carbon Dioxide 23 mmol/L (22-30); Chloride 98 mmol/L (98-107); Estimated CRCL calculation 53 ml/min; Estimated Glomerular Filt Rate > 60; Glucose 207 mg/dL (65-110); Lactate Dehydrogenase 833 U/L (313-618); Potassium 3.5 mmol/L (3.4-5.0); Sodium 133 mmol/L (137-145)
[2021-05-09] MEDS: BARICITINIB 2 MG TABLET 4 MG PO (10:58)
[2021-05-09] MEDS: REMDESIVIR 100 MG/NS 250 ML 100 MG/250 ML BAG 250 MG IVPB (11:10)
[2021-05-09 11:27] LABS: Folic Acid 15.4 ng/mL (2.76->20); Vitamin B12 > 1000.0 pg/mL (239-931)
[2021-05-09 11:54] LABS: Hepatitis B Surface Antigen Negative (Negative)
[2021-05-09 12:00] LABS: HAV RESULT Negative (Negative); Hepatitis B Core IgM Result Negative (Negative)
[2021-05-09 12:01] LABS: Thyroid Stimulating Hormone Reflex 0.492 uIU/mL (0.465-4.68)
[2021-05-09 12:11] LABS: Hepatitis C Virus Antibody Negative (Negative)
--- NOTE | 2021-05-09 14:37 | PC.NURSE ---
On 05/09/21, the student, [Jona Mckeon ], provided care and completed [facility] documentation on this patient. I have reviewed the student's documentation and agree with the findings.
--- NOTE | 2021-05-09 15:09 | PC.NURSE ---
On 05/09/21, the student, [Jona Mckeon ], provided care and completed [facility] documentation on this patient. I have reviewed the student's documentation and agree with the findings.
--- NOTE | 2021-05-09 15:24 | PM.IMPN ---
Progress Note: A&P Assessment and Plan (1) Acute hypoxemic respiratory failure due to COVID-19: Code(s): U07.1 - COVID-19; J96.01 - Acute respiratory failure with hypoxia Status: Acute Assessment and Plan: Patient has acute hypoxic respiratory failure due to COVID-19 pneumonia. Patient was started on Decadron and Remdesivir in the ER. Baricitinib added with the patient's permission. Remaining stable at 2-3L/min O2. CRP elevated at 18 but improved before worsening again. LDH trending down though. Continue to wean oxygen as tolerated to maintain oxygen saturations greater than 90%. Follow inflammatory markers. Continue current treatment plan. Glucose elevated related to steroids. Will add SSI. (2) Syncope: Qualifiers: Syncope type: unspecified Qualified Code(s): R55 - Syncope and collapse Code(s): R55 - Syncope and collapse Status: Acute Assessment and Plan: Patient had syncope prior to admission. CT brain showing no acute intracranial findings. Cervical spine CT showing no fractures. Syncope likely due to volume depletion with decreased oral intake over the last several days. Consider related to Flomax but felt less likely. Orthostatic vital signs normal; repeat orthostatics remain normal yesterday. Echo EF 65-70%, grade I diastolic dysfunction and mild valvular disease. B12/TSH normal. Contineu PT/OT. (3) Elevated LFTs: Code(s): R79.89 - Other specified abnormal findings of blood chemistry Status: Acute Assessment and Plan: AST/ALT normal in Dec. AST 134 and ALT 106 on admission. Levels trending upward to 238/262 respectfully. [place] related to COVID made worse with Remdesivir. Lipitor stopped. Hepatitis panel negative. RUQ US normal. Repeat AST/ALT trending down now. Follow (4) Acute hypokalemia: Code(s): E87.6 - Hypokalemia Status: Acute Assessment and Plan: Patient had mild hypokalemia. He received potassium chloride oral supplementation. Repeat potassium normal. Follow periodically. (5) BPH with obstruction/lower urinary tract symptoms: Code(s): N40.1 - Benign prostatic hyperplasia with lower urinary tract symptoms; N13.8 - Other obstructive and reflux uropathy Status: Acute Assessment and Plan: Patient does have history of BPH and reports frequent dribbling of urine in sensation of incomplete bladder emptying. No evidence of urine retention clinically. Continue Flomax. (6) DVT prophylaxis: Code(s): Z29.9 - Encounter for prophylactic measures, unspecified Status: Acute Assessment and Plan: [place] Subjective Date/time seen: 05/09/21 15:24 Interval history: 81yo male with hx of BPH and Prostate CA here for weakness, cough and SOB and found to have COVID. No CP or HUBBARD. SOB unchanged and does not worsen with acitivty. no n/v. Eating well. Cough unchanged. Exam Narrative: Tm 100.5 97.2 123/54 90 18 92% 2L Gen - NARD Chest - bibasilar dry crackles CV - RRR S1/S2 Abd - Soft, NT/ND, Positive BS Ext - No pedal edema Psych - Nml mood and affect Skin - Warm and dry Objective Data Vital Signs Vital Signs: Vital Signs - 24 hr 05/08/21 16:00 05/08/21 17:41 05/08/21 20:00 Temperature 98.5 F 97.9 F Pulse Rate 80 83 Respiratory Rate 20 20 Blood Pressure 123/69 142/64 H 118/75 Pulse Oximetry 92 92 05/08/21 23:30 05/09/21 00:00 05/09/21 04:00 Temperature 98.3 F 98.5 F Pulse Rate 76 92 Respiratory Rate 18 20 Blood Pressure 125/59 L 133/70 Pulse Oximetry 91 91 90 05/09/21 08:00 05/09/21 09:25 05/09/21 09:35 Temperature 100.5 F H 100.5 F H Pulse Rate 113 H Respiratory Rate 12 Blood Pressure 119/69 Pulse Oximetry 90 89 L 05/09/21 10:25 05/09/21 12:15 Temperature 98.0 F 97.2 F L Pulse Rate 90 Respiratory Rate 18 Blood Pressure 123/54 L Pulse Oximetry 92 Intake/Output Intake/Output: Intake & Output 05/06/21 05/07/21
[2021-05-09 17:13] LABS: Glucose Point of Care 140 mg/dl (65-105)
[2021-05-10] VITALS (10 sets, daily range): BP systolic 120–127; BP diastolic 53–62; PULSE 72–99; RESP 18–20; TEMP 36.8–37.2; O2SAT 86–93
[2021-05-10 07:27] LABS: Basophils Absolute Auto 0.1 K/mm3 (0.0-0.1); Basophils Percent Auto 0.6 % (0.2-1.2); Eosinophils Absolute Auto 0.2 K/mm3 (0-0.3); Eosinophils Percent Auto 1.5 % (0-4.4); Hematocrit 38.3 % (42.0-52.0); Immature Granulocyte Absolute 0.35 K/mm3 (0.00-0.031); Immature Granulocyte Percent A 2.5 % (0-0.5); Lymphocytes Absolute Auto 0.96 K/mm3 (0.9-3.2); Lymphocytes Percent Auto 6.9 % (18.3-44.2); Mean Corpuscular HGB Conc 31.3 g/dl (32-36); Mean Corpuscular Hemoglobin 31.5 pg (26-34); Mean Corpuscular Volume 100.5 fl (80-100); Mean Platelet Volume 8.9 fl (7.4-10.4); Monocytes Absolute Auto 0.6 K/mm3 (0.1-0.6); Monocytes Percent Auto 4.4 % (2.6-8.5); Neutrophils Absolute Auto 11.7 K/mm3 (1.3-6.7); Neutrophils Percent Auto 84.1 % (45.5-73.1); Platelet Count Result 279 k/mm3 (150-375); Red Blood Count 3.81 M/mm3 (4.6-6.20); Red Cell Distribution Width 12.7 % (11.5-14.5); White Blood Count 13.9 K/mm3 (4.5-10.0)
[2021-05-10 07:37] LABS: INR 1.2; Prothrombin Time 15.4 Seconds (11.1-14.7)
[2021-05-10 08:41] LABS: Hemoglobin A1C 5.2 % (<5.7)
[2021-05-10 09:08] LABS: Glucose Point of Care 108 mg/dl (65-105)
[2021-05-10] MEDS: TAMSULOSIN HCL 0.4 MG CAPSULE PO (09:17)
[2021-05-10] MEDS: ENOXAPARIN 40 MG/0.4 ML SYRINGE SUB-Q (09:17)
[2021-05-10] MEDS: DEXAMETHASONE 2 MG TABLET 6 MG PO (09:18)
[2021-05-10] MEDS: REMDESIVIR 100 MG/NS 250 ML 100 MG/250 ML BAG 250 MG IVPB (09:39)
[2021-05-10 10:16] LABS: Alanine Aminotransferase 137 U/L (4-50); Albumin Level 3.3 g/dL (3.5-5.1); Alkaline Phosphatase 72 U/L (38-126); Anion Gap 5 mmol/L (8-16); Aspartate Amino Transferase 87 U/L (17-59); Blood Urea Nitrogen 20 mg/dL (9-20); CRP 17.8 mg/dL (<1.0); Calcium 8.5 mg/dL (8.4-10.2); Carbon Dioxide 25 mmol/L (22-30); Chloride 105 mmol/L (98-107); Creatine Kinase 28 U/L (55-170); Estimated CRCL calculation 59 ml/min; Estimated Glomerular Filt Rate > 60; Glucose 102 mg/dL (65-110); Lactate Dehydrogenase 819 U/L (313-618); Potassium 3.6 mmol/L (3.4-5.0); Sodium 135 mmol/L (137-145)
[2021-05-10] MEDS: BARICITINIB 2 MG TABLET 4 MG PO (11:02)
--- NOTE | 2021-05-10 11:35 | HOMEO2EVAL ---
Evaluation was performed at [facility] Home Oxygen Evaluation RC: Home Oxygen (O2) Evaluation Start: 05/10/21 07:24 Freq: ONCE Status: Active Protocol: RPE Activity Type Activity Date Activity User E-Sign Co-Sign Detail Recorded Client Recorded Date Recorded By Document 05/10/21 10:55 [email or web address] [email or web address] 05/10/21 11:35 DJO Document 05/10/21 11:00 [email or web address] [email or web address] 05/10/21 11:35 DJO Document 05/10/21 11:05 [email or web address] [email or web address] 05/10/21 11:35 DJO Document 05/10/21 11:10 [email or web address] [email or web address] 05/10/21 11:35 DJO Document 05/10/21 11:10 [email or web address] [email or web address] 05/10/21 11:35 DJO Document 05/10/21 11:15 [email or web address] [email or web address] 05/10/21 11:35 DJO Document 05/10/21 11:20 [email or web address] [email or web address] 05/10/21 11:35 DJO Document 05/10/21 11:30 [email or web address] [email or web address] 05/10/21 11:35 DJO 05/10/21 05/10/21 05/10/21 10:55 11:00 11:05 Home O2 Evaluation Test Phase Resting Resting Resting Oxygen Delivery Room Air Nasal Cannula Nasal Cannula Oxygen Flow Rate (L/min) 1 2 Pulse Oximetry (90-100 %) 86 L 88 L 91 Pulse Rate (60-100 beats/min) 72 81 79 Activity Tolerance 05/10/21 05/10/21 05/10/21 11:10 11:10 11:15 Home O2 Evaluation Test Phase Exercise Exercise Exercise Oxygen Delivery Nasal Cannula Nasal Cannula Nasal Cannula Oxygen Flow Rate (L/min) 2 3 4 Pulse Oximetry (90-100 %) 86 L 87 L 88 L Pulse Rate (60-100 beats/min) 95 98 98 Activity Tolerance 05/10/21 05/10/21 11:20 11:30 Home O2 Evaluation Test Phase Exercise Resting Oxygen Delivery Nasal Cannula Nasal Cannula Oxygen Flow Rate (L/min) 5 2 Pulse Oximetry (90-100 %) 91 90 Pulse Rate (60-100 beats/min) 99 82 Activity Tolerance Fair
[2021-05-10 12:44] LABS: Glucose Point of Care 109 mg/dl (65-105)
[2021-05-10] MEDS: LIDOCAINE 5% PATCH 1 PATCH TRANSDERM (12:46)
--- NOTE | 2021-05-10 14:52 | PCRCNOTE ---
HOME O2 EVAL COMPLETE, 2 LITERS AT REST AND 5 LITERS WITH ACTIVITY. SET UP WITH [facility] PHONE NUMBER [phone]. TANK HAS BEEN DELIVERED TO PT'S ROOM FOR DISCHARGE.
--- NOTE | 2021-05-10 15:50 | PM.DS ---
DS: Admitting Diagnosis Discharge Date 05/10/21 Admitting Diagnosis Weakness, cough and SOB DS: Discharge Diagnosis Discharge Diagnosis (1) Acute hypoxemic respiratory failure due to COVID-19: Code(s): U07.1 - COVID-19; J96.01 - Acute respiratory failure with hypoxia Status: Acute Assessment and Plan: Patient has acute hypoxic respiratory failure due to COVID-19 pneumonia. Patient was started on Decadron and Remdesivir in the ER. Baricitinib added with the patient's permission. He remained stable at 2-3L/min O2. CRP elevated at 18 and remained relatively unchanged. LDH trending down though. He completed Remdesivir. He remained stable. He remained on oxygen. He had a home O2 evaluation and needed 2L at rest and 5L with activity. He was advised to use the O2 at night when sleeping as well. He was up walking 80feet with therapy. He declined home health (2) Syncope: Qualifiers: Syncope type: unspecified Qualified Code(s): R55 - Syncope and collapse Code(s): R55 - Syncope and collapse Status: Acute Assessment and Plan: Patient had syncope prior to admission. CT brain showing no acute intracranial findings. Cervical spine CT showing no fractures. Syncope likely due to volume depletion with decreased oral intake over the last several days. Consider related to Flomax but felt less likely. Orthostatic vital signs normal; repeat orthostatics remain normal. Remained stable on tele. Echo EF 65-70%, grade I diastolic dysfunction and mild valvular disease. B12/TSH normal. No recurrence (3) Elevated LFTs: Code(s): R79.89 - Other specified abnormal findings of blood chemistry Status: Acute Assessment and Plan: AST/ALT normal in Dec. AST 134 and ALT 106 on admission. Levels trending upward to 238/262 respectfully. [place] related to COVID made worse with Remdesivir. Lipitor stopped. Hepatitis panel negative. RUQ US normal. Repeat AST/ALT trending down now. (4) Acute hypokalemia: Code(s): E87.6 - Hypokalemia Status: Acute Assessment and Plan: Patient had mild hypokalemia. He received potassium oral supplementation. Repeat potassium normal. (5) BPH with obstruction/lower urinary tract symptoms: Code(s): N40.1 - Benign prostatic hyperplasia with lower urinary tract symptoms; N13.8 - Other obstructive and reflux uropathy Status: Acute Assessment and Plan: Patient does have history of BPH and reports frequent dribbling of urine in sensation of incomplete bladder emptying. No evidence of urine retention clinically. We continued Flomax. DS: Summary Hospital Course Reason for hospitalization: 81yo male with hx of BPH and Prostate CA here for weakness, cough and SOB and found to have COVID. Please see H&P for details Hospital Course: Please see above for details of hospital course Status at Discharge Cognitive/behavioral status at discharge: Stable Time Spent with Patient Time attestation: Total time spent providing and/or coordinating discharge services:35 minutes Time spent: Greater than 30 minutes Specific discharge activities: Patient did not want me to contact family. Exam Narrative: AF 99.0 127/53 96 8 93% 2L Gen - NARD Chest - few inspiratory crackles CV - RRR S1/S2 Abd - Soft, NT/ND, Positive BS Ext - No pedal edema Psych - Nml mood and affect Skin - Warm and dry DS: Data Data Completed and Pending Labs on day of discharge: Labs from last 24 hours 05/10/21 05/10/21 05/10/21 12:35 09:06 06:56 WBC RBC Hgb Hct MCV MCH MCHC RDW Plt Count MPV Immature Gran % (Auto) Neut % (Auto) Lymph % (Auto) [place] % (Auto) Eos % (Auto) Baso % (Auto) Lymph # (Auto) [place] # (Auto) Eos # (Auto) Baso # (Auto) Abs Immat Gran (auto) Absolute Neuts (auto) Absolute Nucleated RBC Nucleated RBC % PT INR Sodium Pot
[2021-05-10 17:02] LABS: Glucose Point of Care 137 mg/dl (65-105)
== END 2021-05-10 17:30 | disposition home or self-care (01) | DRG 177 ==
LOC: ANHED 15:43 → ANH3MEDSUR 18:43
PROVIDERS: Internal Medicine; Physician Assistant; Admitting Provider Internal Medicine; Emergency Provider Emergency Medicine; PCP Family Medicine; Visit Provider Internal Medicine
DX: U07.1 COVID-19 (principal); J12.82 Pneumonia due to coronavirus disease 2019; J96.01 Acute respiratory failure with hypoxia; N13.8 Other obstructive and reflux uropathy; E87.6 Hypokalemia; R55 Syncope and collapse; N40.1 Benign prostatic hyperplasia with lower urinary tract symptoms; N40.0 Benign prostatic hyperplasia without lower urinary tract symptoms; E78.5 Hyperlipidemia, unspecified; I35.0 Nonrheumatic aortic (valve) stenosis; Z85.46 Personal history of malignant neoplasm of prostate; Z90.49 Acquired absence of other specified parts of digestive tract; Z87.891 Personal history of nicotine dependence
CPT/HCPCS: 36415; 36600; 70450; 71045; 71275; 72110; 72125; 76705; 80048; 80053; 80074; 82375; 82550; 82607; 82728; 82746; 82805; 82948; 83036; 83050; 83605; 83615; 83735; 84443; 84450; 84460; 85025; 85610; 86140; 93005; 93306; 96365; 97110; 97162; 97165; 97530; 99285; A9270; C9803; J0131; J1650; J7030; J8540; Q9967; U0003; U0005

== ENCOUNTER 2021-06-04 14:41 | Outpatient (CLI) | payer OTHER, SELFPAY ==
--- NOTE | ~2021-06-04 | XR_ITS ---
XR chest 2V 06/04/2021 15:07 Indication: Shortness of breath Procedure: 2 view chest Comparison: 05/10/2021 Findings: Patchy bilateral airspace disease, compatible with pneumonia, unchanged. No pleural effusio n or pneumothorax. No acute osseous abnormality. Impression: 1: Stable patchy bilateral airspace disease, compatible with pneumonia Reviewed, dictated and finalized at location B. OR TREASURY CONSULTANT Impression: 1: Stable patchy bilateral airspace disease, compatible with pneumonia
== END 2021-06-04 14:42 | disposition home or self-care (01) ==
PROVIDERS: PCP Family Medicine; Visit Provider Nurse Practitioner Family
DX: R06.02 Shortness of breath (principal); R91.8 Other nonspecific abnormal finding of lung field
CPT/HCPCS: 71046

== ENCOUNTER 2023-03-03 11:37 | Outpatient (CLI) | payer OTHER, SELFPAY ==
[2023-03-03 19:51] LABS: Basophils Absolute Auto 0.1 K/mm3 (0.0-0.1); Basophils Percent Auto 0.7 % (0.2-1.2); Eosinophils Absolute Auto 0.2 K/mm3 (0-0.3); Eosinophils Percent Auto 2.6 % (0-4.4); Hematocrit 42.3 % (42.0-52.0); Immature Granulocyte Absolute 0.05 K/mm3 (0.00-0.031); Immature Granulocyte Percent A 0.7 % (0-0.5); Lymphocytes Absolute Auto 1.87 K/mm3 (0.9-3.2); Mean Corpuscular HGB Conc 33.1 g/dl (32-36); Mean Corpuscular Hemoglobin 31.3 pg (26-34); Mean Corpuscular Volume 94.4 fl (80-100); Mean Platelet Volume 9.5 fl (7.4-10.4); Monocytes Absolute Auto 0.7 K/mm3 (0.1-0.6); Monocytes Percent Auto 9.1 % (2.6-8.5); Neutrophils Absolute Auto 4.4 K/mm3 (1.3-6.7); Neutrophils Percent Auto 60.9 % (45.5-73.1); Platelet Count Result 233 k/mm3 (150-375); Red Blood Count 4.48 M/mm3 (4.6-6.20); Red Cell Distribution Width 12.8 % (11.5-14.5); White Blood Count 7.2 K/mm3 (4.5-10.0)
[2023-03-03 20:03] LABS: Vitamin D 25 Hydroxy 32.4 ng/mL
[2023-03-03 20:15] LABS: Alanine Aminotransferase 21 U/L (6-50); Albumin Level 4.4 g/dL (3.5-5.1); Alkaline Phosphatase 56 U/L (38-126); Anion Gap 9 mmol/L (8-16); Aspartate Amino Transferase 28 U/L (17-59); Bilirubin,Total 1.2 mg/dL (0.2-1.3); Blood Urea Nitrogen 15 mg/dL (9-20); Calcium 9.3 mg/dL (8.4-10.2); Carbon Dioxide 30 mmol/L (22-30); Chloride 101 mmol/L (98-107); Estimated Glomerular Filt Rate > 60; Glucose 93 mg/dL (65-110); HDL Direct 45 mg/dL; Potassium 4.3 mmol/L (3.4-5.0); Sodium 140 mmol/L (137-145); Triglycerides 250 mg/dL (<150)
[2023-03-03 20:22] LABS: LDL Cholesterol Direct 198 mg/dL
[2023-03-03 20:42] LABS: Prostate Specific Antigen 8.2 ng/mL (< OR = 4.0)
[2023-03-03 22:24] LABS: Cholesterol 341 mg/dL (0-200)
== END 2023-03-03 11:38 | disposition home or self-care (01) ==
LOC: ANHGOSHLAB 11:39
PROVIDERS: PCP Family Medicine; Visit Provider Family Medicine
DX: E78.5 Hyperlipidemia, unspecified (principal); R79.89 Other specified abnormal findings of blood chemistry; Z13.29 Encounter for screening for other suspected endocrine disorder; E53.8 Deficiency of other specified B group vitamins; Z12.5 Encounter for screening for malignant neoplasm of prostate; Z79.899 Other long term (current) drug therapy; E55.9 Vitamin D deficiency, unspecified
CPT/HCPCS: 36415; 80053; 80061; 82306; 82607; 84153; 84443; 85025; G0103

== ENCOUNTER 2024-09-18 20:27 | Emergency (ER) | payer OTHER, SELFPAY ==
--- OUTSIDE RECORDS SUMMARY | 2024-09-18 20:28 | XMS_ITS | Clinical Summary ---
Author Organization [facility] Address [address] [facility], [address] [address] Phone Care Team Providers Care Special Effects Designer Name Role Phone James Lowe MD Primary Care Provider Allergies No known active allergies Medications atorvastatin (LIPITOR) 20 MG Tablet TK 1 T PO D 0 06/13/2016 Active [place]-3 Fatty Acids (FISH OIL PO) Take by mouth. Active glucosamine-cho ndroitin 500-400 MG Capsule Take 1 Cap by mouth 3 times daily. Active tamsulosin (FLOMAX) 0.4 MG CapsuleIndicati ons:BPH with obstruction/low er urinary tract symptoms TAKE 1 CAPSULE BY MOUTH EVERY DAY 90 Capsule 3 06/27/2020 Active Active Problems Problem Noted Date Diagnosed Date High cholesterol 06/27/2016 History of tobacco use 06/27/2016 BPH loc w urin obs/LUTS 06/27/2016 Primary prostate malignancy 06/27/2016 Resolved Problems Problem Noted Date Diagnosed Date Resolved Date Hematuria, microscopic 06/27/201607/15 Family History Relation Name Status Comments Father Mother Social History Tobacco Use Types Packs/Day Years Used Date Smoking Tobacco: Former Cigarettes 0.5 20 Smokeless Tobacco: Never Tobacco Cessation:Counseling Given: No Alcohol Use Standard Drinks/Week Comments Yes 0 (1 standard drink = 0.6 oz pur e alcohol) Beer every other night Sexually Active Control Partners Comments Not Currently Female Sex and Gender Information Value Date Recorded Sex Assigned at Not on file 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 Gender Identity Not on file Sexual Orientation Not on file Last Filed Vital Signs Vital Sign Reading Time Taken Comments Blood Pressure 130/72 06/15/2019 1:05 PM IS PROJECT MANAGER Pulse 73 06/15/2019 1:05 PM IS PROJECT MANAGER Temperature 36.8 C (98.2 F) 06/15/2019 1:05 PM IS PROJECT MANAGER Respiratory Rate 20 06/15/2019 1:05 PM IS PROJECT MANAGER Oxygen Saturation 98% 06/15/2019 1:05 PM IS PROJECT MANAGER Inhaled Oxygen Concentration - - Weight 78.7 kg (173 lb 6.4 oz) 06/15/2019 1:05 P M IS PROJECT MANAGER Height 172.7 cm (5' 8) 11/10/2018 1:32 PM CDT Body Mass Index 26.37 11/10/2018 1:32 PM CDT Plan of Treatment Health Maintenance Due Date Last Done Comments Hepatitis C Virus (HCV) Screening 1940 TdaP Immunization 1940 Pneumococcal Immunization (5 0+ years) (1 of 2 - PCV) 1957 Zoster Immunization (1 of 2) 1959 Respiratory Syncytial Virus (RSV) Immunization (Adult) (1 - 1-dose 75+ series) 2013 SARS-COV-2 Immunization ( season) 2023 03/03/2021, 06/29/2020, 06/09/2020 Influenza Immunization (Seas on Ended) 2024 02/09/2019, 05/12/2017 Hepatitis B Immunization Aged Out No longer eligible based on patient's age to complete this topic Human Papillomavirus (HPV) Immunization Aged Out No longer eligible b ased on patient's age to complete this topic Meningococcal Immunization (ACWY) Aged Out No longer eligible b ased on patient's age to complete this topic Rotavirus Immunization Aged Out No lo nger eligible based on patient's age to complete this topic Insurance [employer] Care Teams Special Effects Designer Relationship Specialty Start Date End Date James Lowe MD PCP - General Family Medicine 07/13/17
[2024-09-18 20:33] VITALS: BP 120/65; PULSE 95; RESP 16; TEMP 36.5; O2SAT 96
[2024-09-18 21:45] VITALS: O2SAT 97
--- OUTSIDE RECORDS SUMMARY | 2024-09-18 21:51 | XMS_ITS | Clinical Summary ---
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 Gender Identity Not on file Sexual Orientation Not on file Last Filed Vital Signs Vital Sign Reading Time Taken Comments Blood Pressure 130/72 06/15/2019 1:05 PM SPIKE MACHINE FEEDER Pulse 73 06/15/2019 1:05 PM SPIKE MACHINE FEEDER Temperature 36.8 C (98.2 F) 06/15/2019 1:05 PM SPIKE MACHINE FEEDER Respiratory Rate 20 06/15/2019 1:05 PM SPIKE MACHINE FEEDER Oxygen Saturation 98% 06/15/2019 1:05 PM SPIKE MACHINE FEEDER Inhaled Oxygen Concentration - - Weight 78.7 kg (173 lb 6.4 oz) 06/15/2019 1:05 P M SPIKE MACHINE FEEDER Height 172.7 cm (5' 8) 11/10/2018 1:32 [...] this topic Insurance [employer]I Care Teams Air And Missile Defense Crewmember Relationship Specialty Start Date End Date James Lowe MD PCP - General Family Medicine 07/13/17
[2024-09-18] MEDS: diphenhydrAMINE HCl CAP 25 MG CAPSULE PO (21:53)
--- NOTE | 2024-09-18 22:02 | ED.SKABFB ---
HPI - Skin/Abscess/Foreign Bdy General Chief complaint: Skin/Abscess/Foreign Body Stated complaint: Rash-? shingles Time Seen by Provider: 09/18/24 21:12 History of Present Illness HPI narrative: 84-year-old male presents with his at bedside with concerns for shingles. Patient's assist with history. States the rash started around the patient's neck about 3 days ago. The patient states the rash is very itchy. They state they started a new laundry detergent this week and then the rash appeared. The patient's states that he wears a lot of collared shirts and is worried that he may be having a reaction to the new laundry detergent from his shirts rubbing on his neck. He denies any fever or systemic signs of infection. Denies any medication changes. Denies rash anywhere else on his body. Related Data Home Medications ?Medication ?Instructions ?Recorded ?Confirmed ?Last Taken ?Type glucosamine sulfate 500 mg tablet 500 mg PO DAILY 01/22/23 03/03/23 Unknown History (Glucosamine) Allergies Allergy/AdvReac Type Severity Reaction Status Date / Time No Known Allergies Allergy Verified 09/18/24 21:37 Review of Systems Review of Systems: All systems reviewed & are unremarkable except as noted in HPI and below PMFSH Past Medical History Medical History Aortic stenosis Acute hypoxemic respiratory failure due to COVID-19 (~04/2021) Hx of malignant neoplasm of prostate Chronic back pain Dyslipidemia Prostate cancer BPH w/o urinary obs/LUTS Surgical History Surgical History History of appendectomy 194 History of tonsillectomy and adenoidectomy 1944 History of hemorrhoidectomy 1971 Family History Family History Father Cerebrovascular accident Other No pertinent family history Social History Social History Social History: Patient has been 3 times. His last January 2021. He is still having periods of grieving. He lives with a friend. 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 He smoked for about 10 years but quit in his early 30s. He rarely drinks alcohol and only in moderation. He denies illicit substance use. Primary care physician: Dr. James Lowe Code status: DNR/DNI (the patient states that he would be okay with care up until the point of intubation or cardiac arrest including pressor and noninvasive ventilatory support) Surrogate decision maker: David (son) Years smoked: 10 Smoking status: Former smoker Tobacco type: cigarettes Second hand tobacco smoke exposure: No Smoking end date: 04/13/72 Alcohol intake: never Alcohol use details: consumes 2 beers twice weekly Substance use: never Substance use type: does not use Lack of Transportation: No Lack of Food: Never True Current Housing: I Have Housing Concerned About Future Housing: No Difficulty Paying Gas/Electric Bills: No Difficulty Paying for Meds: No Currently Unemployed: No Education: Master's Degree or Higher Difficulty w/ Childcare or Family Care: No Living arrangements: with friend(s) Occupation/Education: retired Gender identity (if verbalized by the patient): Male Spiritual care concerns: No Agree to blood products: Yes Exam Narrative: GENERAL: Well-appearing, well-nourished, and in no acute distress. HEAD: Normocephalic, atraumatic. EYES: EOMI. ENT: Nares clear, no rhinorrhea or epistaxis. Mucous membranes moist. NECK: Supple. CHEST: Clear to auscultation. No respiratory distress. HEART: Regular rate and rhythm. No murmur heard. Normal peripheral pulses. EXTREMITIES: Normal range of motion. No edema. SKIN: Maculopapular rash to the posterior and lateral neck along the collar line with scattered wheals and excoriations. No discrimination, negative Nikolsky sign. No rash to remainder of skin NEURO: No focal deficits. Alert and oriented x3 Course Vital Signs Vital signs: Vital Signs Temperature 97.7 F 09/18/24 20:33 Pulse Rate 95 09/18/24 20:33 Respiratory Rate 16 09/18/24 20:33 Blood Pressure 120/65 09/18/24 20:33 Pulse Oximetry 96 09/18/24 20:33 Oxygen Delivery Room Air 09/18/24 20:33 Temperature 97.7 F 09/18/24 20:33 Pulse Rate 95 09/18/24 20:33 Respiratory Rate 16 09/18/24 20:33 Blood Pressure 120/65 09/18/24 20:33 Pulse Oximetry 96 09/18/24 20:33 Oxygen Delivery Room Air 09/18/24 20:33 MDM - Skin/Abscess/Foreign Bdy MDM Narrative Medical decision making narrative: 84-year-old male presents emergency department with at bedside for an itchy rash to his neck for the past 3 days. Patient's notes that they recently changed the laundry detergent within past week and then the rash appeared. The patient describes a rash is very itchy. It is along the collar line of his neck. Vitals are stable. Exam is consistent with a contact/allergic dermatitis, likely due to the new laundry detergent. Rash is not consistent with SJS or TEN. No infectious or systemic signs of illness. He was given Benadryl and IM Decadron in the ED and sent home with topical steroids, Benadryl and Pepcid. He is advised follow-up with PCP and given return precautions. Advised to discontinue the new laundry detergent. He is agreeable with the plan verbalized understanding. Discharged in stable co ndition. Discharge Plan Discharge Clinical Impression: Dermatitis Patient Disposition: Home Condition: Stable Instructions: Antibiotic Form, Dermatitis (ED) Additional Instructions: You were evaluated in the emergency department for rash. Rash does not appear to be shingles but instead appears to be an allergic reaction from her laundry detergent. Please stop using his laundry detergent. Take the medications and use the topical cream as directed. Follow-up with your primary care provider. Return to the emergency department if you develop worsening rash, fever, or other concerning symptoms. Patient Language: Kyrgyz Prescriptions: New triamcinolone acetonide 0.5 % cream 1 applic topical BID 7 Days Qty: 15 0RF famotidine 20 mg tablet 20 mg PO DAILY Qty: 14 0RF diphenhydramine HCl 25 mg capsule 25 mg PO TID PRN (Reason: itching) Qty: 14 0RF No Action atorvastatin 20 mg tablet 20 mg PO QHS Qty: 90 1RF glucosamine sulfate [Glucosamine] 500 mg tablet 500 mg PO DAILY Rx Instructions: administer with a meal Follow-up/Referrals: Stewart Lowe MD [Primary Care Provider] -
[2024-09-18] MEDS: dexAMETHasone SOD PHOS INJ 10 MG/ML 1 ML VIAL IM (22:18)
[2024-09-18 22:40] VITALS: BP 132/81; PULSE 88; RESP 18; O2SAT 97
== END 2024-09-18 22:41 | disposition home or self-care (01) ==
PROVIDERS: Emergency Provider Physician Assistant; PCP Family Medicine
DX: L30.9 Dermatitis, unspecified (principal); Z85.46 Personal history of malignant neoplasm of prostate; E78.49 Other hyperlipidemia
CPT/HCPCS: 96372; 99283; A9270; J1100